=== PATIENT | male | born 1980 | race Caucasian/White ===

== ENCOUNTER → 2022-10-29 14:34 | Outpatient (CLI) | payer BC, SELFPAY ==
--- NOTE | ~2022-10-29 | XR_ITS ---
XR wrist RT min 3V DATE: 10/29/2022 15:03 INDICATION: Right wrist pain TECHNIQUE: 4 views COMPARISON: None FINDINGS: Approximately 4.5 mm distal lateral navicular cyst. No fracture or dislocation, periosteal reaction or bone destruction. Joint spaces are preserved. No e rosive change or chondrocalcinosis. IMPRESSION: Benign navicular cyst Reviewed, dictated and finalized at location A. SERVICE ORDER CLERK IMPRESSION: Benign navicular cyst
--- NOTE | ~2022-10-29 | XR_ITS ---
XR wrist LT min 3V DATE: 10/29/2022 15:03 INDICATION: Left hand pain, wrist pain TECHNIQUE: 4 views of left breast COMPARISON: None FINDINGS: Approximately 6 mm benign cyst of the distal medial aspect of the navicular bone. No fracture, dislocation, periosteal reaction or bone destruction. No erosive change or chondrocalcin osis. IMPRESSION: 6 mm benign navicular cyst Reviewed, dictated and finalized at location A. TURE CONNECTOR IMPRESSION: 6 mm benign navicular cyst
--- NOTE | ~2022-10-29 | XR_ITS ---
XR hand LT min 3V DATE: 10/29/2022 15:02 INDICATION: Left hand pain TECHNIQUE: 3 views COMPARISON: None FINDINGS: Approximately 6 mm distal medial navicular cyst. No fracture or dislocation, periosteal reaction or bone destruction. IMPRESSION: 6 mm benign navicular cyst Reviewed, dictated and finalized at location A. MOTIVE MECHANICAL ENGINEER IMPRESSION: 6 mm benign navicular cyst
--- NOTE | ~2022-10-29 | XR_ITS ---
XR hand RT min 3V DATE: 10/29/2022 15:03 INDICATION: Right wrist and hand pain TECHNIQUE: 3 views COMPARISON: None FINDINGS: Benign small cyst of the distal lateral aspect of the navicular bone. No fracture or dislocation, per iosteal reaction or bone destruction. No erosive change or chondrocalcinosis. IMPRESSION: Benign small cyst of navicular bone Reviewed, dictated and finalized at location A. 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
== END ==
PROVIDERS: PCP Nurse Practitioner Family; Visit Provider Nurse Practitioner Family
DX: M79.641 Pain in right hand (principal); M25.531 Pain in right wrist; M25.532 Pain in left wrist; M79.642 Pain in left hand; M25.842 Other specified joint disorders, left hand; M25.841 Other specified joint disorders, right hand
CPT/HCPCS: 73110; 73130

== ENCOUNTER 2024-07-14 12:02 | Emergency (ER) | payer BC, SELFPAY ==
--- NOTE | 2024-07-14 12:11 | ED.NECK ---
HPI - Neck Pain/Injury General Chief Complaint: Neck Pain/Injury Stated Complaint: LT side neck pain Time Seen by Provider: 07/14/24 12:11 Source: patient Mode of arrival: ambulatory Limitations: no limitations History of Present Illness HPI Narrative: Jose is a 44-year-old male patient presenting to the clinic today with complaints of left-sided jaw pain/swelling that just started prior to arrival. He reports the swelling and discomfort has gone down since he is been in the clinic today. States pain/swelling started while he was eating. Developed a very sour taste in his mouth follow by swelling and pressure in his right lower posterior jaw. He denies uri symptoms, dental pain, fever, or ear pain prior to this occurring. No history of TMJ Related Data Home Medications Medication Instructions Recorded Confirmed No Home Medications 07/14/24 07/14/24 Allergies Allergy/AdvReac Type Severity Reaction Status Date / Time No Known Allergies Allergy Verified 07/14/24 12:07 Review of Systems Review of Systems: Pertinent positives per HPI. Patient denies any fever, chills, rash, headache, visual changes, dizziness, cough, runny nose, sore throat, shortness of breath, chest pain, palpitations, nausea, vomiting, diarrhea, constipation, abdominal pain, or any urinary issues. [facility] Past Medical History Medical History Elevated WBC count Encounter to establish care Heartburn Left hand pain Left wrist pain Right hand pain Right wrist pain Surgical History Surgical History H/O vasectomy Family History Family History Father Patient's father is in good health Sibling Patient's sister is in good health Mother Cancer Grandparent Depression Social History Social History Smoking status: Never smoker Alcohol intake: current Alcohol use details: socially, beer Substance use: never Substance use type: does not use Lack of Transportation: No Lack of Food: Never True Current Housing: I Have Housing Concerned About Future Housing: Decline to Answer Difficulty Paying Gas/Electric Bills: Decline to Answer Difficulty Paying for Meds: Decline to Answer Currently Unemployed: Decline to Answer Education: Trade/Vocational Certificate Difficulty w/ Childcare or Family Care: No Comments At the time of my signature, I reviewed and agree with the nursing past medical, surgical, social, and family history. There is no relevant family history pertinent to the patient complaint. Exam Narrative: General: Well-developed, well nourished, in no apparent distress Head: Normocephalic, atraumatic Eyes: Pupils equally round and reactive to light bilaterally, EOM intact, sclera and conjunctive clear, no discharge, lids normal Ears: TMs intact and clear, ear canals clear, no drainage, grossly hearing normal. Nose: Nares patent, no discharge, no inflammation, no sinus tenderness. Mouth: Oropharynx without lesions or masses, good dentition, MMM. Mild tender to palpation to the left posterior jaw, reports feeling swollen, no crepitus over the TMJ Neck: Supple, trachea midline, no enlargement of anterior or posterior cervical nodes, no thyroid masses or goiter palpable. Cardio: Regular rate and rhythm, s1 and s2 normal, no murmur appreciated. Resp: Clear to auscultation bilaterally anteriorly and posteriorly, no rhonchi, rales, wheezing or rubs Course Course Emergency Course: Portions of this record may have been created with voice recognition software. Level of Care: Express Care Visit Vital Signs Vital signs: Vital signs reviewed MDM - Neck Pain/Injury MDM Narrative Medical decision making narrative: At the time of visit patient is resting comfortably
[2024-07-14 12:16] VITALS: BP 138/86; PULSE 69; RESP 16; TEMP 36.4; O2SAT 100
== END 2024-07-14 12:32 | disposition home or self-care (01) ==
PROVIDERS: Emergency Provider Nurse Practitioner Family; PCP Family Medicine
DX: K11.8 Other diseases of salivary glands (principal); R12 Heartburn; Z98.52 Vasectomy status
CPT/HCPCS: 99211; G0463